=== PATIENT | female | born 1985 | race Caucasian/White ===

== ENCOUNTER 2021-01-18 07:32 | Inpatient (IN) ==
[2021-01-18] MEDS ORDERED: OXYTOCIN 30 UNITS/500 ML BAG IV PRN (10:41)
[2021-01-18] MEDS ORDERED: miSOPROStoL 50 MCG TAB PO ONE ×2 (10:41→14:56)
--- NOTE | 2021-01-18 10:41 | Progress Note ---
Date of Service January 18, 2021 Assessment & Plan Admission and Anticipated Discharge Date Admission Date: January 18, 2021 Subjective Met pt and Mother Reviewed PNC, PMH, PSH and allergies Plan labor induction FHR; CAT 1 Ctx; 2-5min Mild intensity VE; 3/50/-3 EFW; 7-8Lbs by kyung bedside sono; VT Results & Data ([facility]) Vital Signs (Past 12 Hours) Vital Signs Temp Resp 01/18/21 08:07 36.8 C 20
[2021-01-18 11:21] LABS: Hematocrit (blood only) 39.4 % (37-47); Hemoglobin 13.6 g/dL (12.0-16.0); Mean Corpuscular Hemoglobin 31.9 pg (25-34); Mean Corpuscular Hgb Conc 34.5 g/dL (32-36); Mean Corpuscular Volume 92.3 fL (80-100); Mean Platelet Volume 12.3 fL (7.4-10.4); Platelet Count 158 K/uL (130-400); RDW Coefficient of Variation 12.8 % (11.5-14.5); RDW Standard Deviation 43.3 fL (36.4-46.3); Red Blood Count 4.27 M/uL (4.2-5.4); White Blood Count 8.58 K/uL (4.8-10.8)
[2021-01-18] MEDS ORDERED: DINOPROSTONE 10 MG INSERT PV ONE (19:50)
--- NOTE | 2021-01-18 21:46 | Progress Note ---
Date of Service January 18, 2021 Assessment & Plan Admission and Anticipated Discharge Date Admission Date: January 18, 2021 Subjective Pt doing well doing well FHR; CAT1 VE; 3/50/-2 Cervidil placed Results & Data ([facility]) Vital Signs (Past 12 Hours) Vital Signs Temp Pulse Resp BP 01/18/21 19:00 36.6 C 59 L 18 111/65 01/18/21 15:22 36.5 C 57 L 18 130/67 01/18/21 15:05 65 96/61 L 01/18/21 14:03 70 20 99/60 L 01/18/21 12:45 36.7 C 68 20 109/73 01/18/21 11:01 71 16 103/62
[2021-01-19] MEDS ORDERED: fentaNYL citrate 100 MCG/2 ML VIAL ONE (05:04)
[2021-01-19] MEDS ORDERED: SODIUM CHLORIDE 0.9% INJ 10 ML VIAL ONE (05:04)
[2021-01-19] MEDS ORDERED: ePHEDrine sulfate 50 MG/ML AMP ONE (05:04)
[2021-01-19] MEDS ORDERED: BUPIVACAINE 0.25% 30 ML VIAL ONE (05:04)
[2021-01-19] MEDS ORDERED: fentaNYL 2MCG/ML ROPIVACAINE 1.25MG/ML 100 ML BAG EPI ONE (05:05)
[2021-01-19] MEDS: LACTATED RINGER'S 1,000 ML IV PRN ×2 (05:05→07:08)
[2021-01-19] MEDS ORDERED: NALOXONE HCL 1 MG in SODIUM CHLORIDE 0.9% 1000ML 1,000 ML IV PRN (05:23)
[2021-01-19] MEDS ORDERED: fentaNYL 2MCG/ML ROPIVACAINE 1.25MG/ML 100 ML BAG EPI PRN (05:23)
[2021-01-19] MEDS ORDERED: NALBUPHINE HCL INJ 10 MG/ML AMP IV PRN (05:23)
[2021-01-19] MEDS ORDERED: ePHEDrine sulfate 50 MG/ML AMP IV PRN (05:23)
[2021-01-19] MEDS ORDERED: ONDANSETRON INJ 2 MG/ML 2 ML VIAL IV PRN (05:23)
[2021-01-19] MEDS ORDERED: NALOXONE HCL 0.4 MG/1 ML VIAL/CARP IV PRN (05:23)
[2021-01-19] MEDS ORDERED: diphenhydrAMINE 50 MG/ML VIAL IV PRN (05:23)
--- NOTE | 2021-01-19 05:25 | Anesthesiology Consultation ---
Date of Service January 19, 2021 Assessment & Plan (1) Encounter for pre-operative examination: Chart Review Chart Review: Patient NOT seen in Pre Admission Testing and Acceptable Risk for Labor Epidural Consults Requested none History Height/Weight Height: 5 ft 2 in Weight: 72.575 kg Allergies Allergy/AdvReac Type Severity Reaction Status Date / Time No Known Allergies Allergy Unverified 01/18/21 07:47 Medications Home Medications Medication Instructions Recorded Confirmed Last Taken acetaminophen 325 mg capsule 325 mg PO QID PRN 01/18/21 01/18/21 Unknown (Tylenol) prenat.vits,iris,kaq-exhr-hzsmy 1 tab PO DAILY 01/18/21 01/18/21 01/18/21 05:30 Active Medications Generic Name Dose Route Start Last Admin Trade Name Freq PRN Reason Stop Dose Admin Lactated Ringer's 1,000 mls @ 125 mls/hr 01/18/21 10:41 01/19/21 05:05 Lr IV 01/20/21 10:40 125 mls/hr .Q8H PRN Administration L&D Protocol Protocol Past Medical History Medical History Varicose vein of leg R posterior calf Exercise / Class Metabolic Activity II 4-5 Yardwork/Stairs/Walk up hill Past Family History Family History Mother Uterine cancer Past Surgical History Surgical History H/O wisdom tooth extraction History of removal of skin mole abdomen Past Anesthesia History No Hx of Anesthesia Complications and No Family Hx of Anesthesia Complications History of PONV No Hx of PONV and No Hx of Motion Sickness Social History Smoking Status: Never smoker Do You Dip or Chew Tobacco: No Hx Alcohol Use: No Hx Substance Use: No substance use type: does not use Physical Exam Vital Signs Last Vital Signs Temp 36.6 C 01/19/21 02:30 Pulse 64 01/19/21 05:45 Resp 18 01/19/21 02:30 BP 127/64 01/19/21 05:44 Pulse Ox 94 01/19/21 05:45 Testing Laboratory Results 01/18/21 11:00
--- NOTE | 2021-01-19 07:54 | Obstetrical Progress Note ---
Date of Service January 19, 2021 Assessment & Plan Admission and Anticipated Discharge Date Admission Date: January 18, 2021 Subjective Patient is seen and examined Reviewed her records and discussed her PMH, PSH, meds, SH GDMA1 Sciatica pain GBS neg Coronavirus neg She is comfortable with epidural in place VSS Afebrile FHR categ I VE: 7/ 80%/ -1, bulging bag, AROM'ed clear fluid Continue to monitor Anticipate Results & Data ([facility]) Vital Signs (Past 12 Hours) Vital Signs Temp Pulse Resp BP Pulse Ox 01/19/21 07:48 62 93 01/19/21 07:47 68 116/63 01/19/21 07:43 59 L 91 01/19/21 07:38 59 L 93 01/19/21 07:34 61 108/59 L 01/19/21 07:33 61 94 01/19/21 07:28 62 94 01/19/21 07:23 66 93 01/19/21 07:18 58 L 107/63 92 01/19/21 07:13 64 92 01/19/21 07:08 61 93 01/19/21 07:04 65 103/67 01/19/21 07:03 66 95 01/19/21 06:58 58 L 97 01/19/21 06:57 36.4 C L 63 18 103/66 96 01/19/21 06:53 60 96 01/19/21 06:48 66 96 01/19/21 06:47 75 110/72 01/19/21 06:43 57 L 95 01/19/21 06:38 61 92 01/19/21 06:36 75 89 L 01/19/21 06:33 73 111/64 92 01/19/21 06:28 60 88 L 01/19/21 06:26 57 L 88 L 01/19/21 06:23 60 87 L 01/19/21 06:18 62 94 01/19/21 06:16 57 L 88 L 01/19/21 06:15 57 L 132/66 01/19/21 06:13 61 91 01/19/21 06:11 61 121/68 01/19/21 06:08 58 L 94 01/19/21 06:04 61 109/68 01/19/21 06:03 61 93 01/19/21 06:02 60 116/72 01/19/21 06:00 61 140/62 94 01/19/21 05:58 70 112/68 91 01/19/21 05:56 63 125/69 01/19/21 05:54 76 115/67 01/19/21 05:53 73 93 01/19/21 05:52 63 144/81 H 94 01/19/21 05:49 60 118/68 01/19/21 05:48 60 116/64 95 01/19/21 05:46 60 107/54 L 01/19/21 05:45 64 94 01/19/21 05:44 65 127/64 01/19/21 05:43 63 93 01/19/21 05:38 67 92 01/19/21 05:37 65 94 01/19/21 05:33 62 92 01/19/21 05:30 70 138/66 93 01/19/21 05:28 63 92 01/19/21 05:23 68 95 01/19/21 05:22 78 92 01/19/21 02:30 36.6 C 65 18 114/66 01/18/21 22:42 36.6 C 67 18 110/57 L
[2021-01-19] MEDS ORDERED: BENZOCAINE 20% AER SPR 82.5 GM CAN EXT PRN (10:05)
[2021-01-19] MEDS ORDERED: SUPERCREAM 0.870% 15 GM JAR EXT PRN (10:05)
[2021-01-19] MEDS ORDERED: MEASLES, MUMPS & RUBELLA VIRUS VIAL SQ ONE (10:05)
[2021-01-19] MEDS ORDERED: bisacodyL 10 MG SUPP PR PRN (10:05)
[2021-01-19] MEDS ORDERED: OXYTOCIN 30 UNITS/500 ML BAG IV PRN (10:05)
[2021-01-19] MEDS ORDERED: HYDROCORTISONE ACETATE 25 MG SUPP PR PRN (10:05)
[2021-01-19] MEDS ORDERED: DIPHTHERIA/TETANUS/PERTUSSIS 0.5 ML SYR/VIAL IM ONE (10:05)
[2021-01-19] MEDS ORDERED: IBUPROFEN 600 MG TAB PO PRN (10:05)
--- NOTE | 2021-01-19 11:03 | Anesthesiology Progress Note ---
Date of Service January 19, 2021 Anesthesia Post Procedure Vital Signs Vital Signs: Temp Pulse Resp BP Pulse Ox 01/19/21 10:47 74 112/59 L 01/19/21 10:32 68 107/53 L 01/19/21 10:18 69 114/53 L 01/19/21 10:08 90 87 L 01/19/21 10:06 83 86 L 01/19/21 10:03 71 95 01/19/21 10:02 72 105/60 01/19/21 09:58 74 94 01/19/21 09:53 76 94 01/19/21 09:48 68 112/66 94 01/19/21 09:43 75 93 01/19/21 09:38 80 85 L 01/19/21 09:36 76 85 L 01/19/21 09:33 69 117/68 93 01/19/21 09:31 64 87 L 01/19/21 09:28 69 93 01/19/21 09:25 68 88 L 01/19/21 09:23 65 93 01/19/21 09:18 68 98/56 L 94 01/19/21 09:13 66 94 01/19/21 09:08 68 94 01/19/21 09:04 71 104/62 01/19/21 09:03 69 94 01/19/21 09:02 74 87 L 01/19/21 09:00 36.7 C 18 01/19/21 08:58 61 93 01/19/21 08:53 64 94 01/19/21 08:49 70 117/71 88 L 01/19/21 08:48 66 93 01/19/21 08:43 71 94 01/19/21 08:38 66 94 01/19/21 08:33 65 106/62 95 01/19/21 08:28 63 94 01/19/21 08:23 69 93 01/19/21 08:19 67 105/64 01/19/21 08:18 69 92 01/19/21 08:13 65 92 01/19/21 08:10 72 87 L 01/19/21 08:08 62 91 01/19/21 08:03 64 91 01/19/21 08:02 68 106/64 01/19/21 08:00 18 01/19/21 07:58 70 92 01/19/21 07:55 68 89 L 01/19/21 07:53 69 92 01/19/21 07:48 62 93 01/19/21 07:47 68 116/63 01/19/21 07:43 59 L 91 01/19/21 07:38 59 L 93 01/19/21 07:34 61 108/59 L 01/19/21 07:33 61 94 01/19/21 07:30 18 01/19/21 07:28 62 94 01/19/21 07:23 66 93 01/19/21 07:18 58 L 107/63 92 01/19/21 07:13 64 92 01/19/21 07:08 61 93 01/19/21 07:04 65 103/67 01/19/21 07:03 66 95 01/19/21 07:00 18 01/19/21 06:58 58 L 97 01/19/21 06:57 36.4 C L 63 18 103/66 96 01/19/21 06:53 60 96 01/19/21 06:48 66 96 01/19/21 06:47 75 110/72 01/19/21 06:43 57 L 95 01/19/21 06:38 61 92 01/19/21 06:36 75 89 L 01/19/21 06:33 73 111/64 92 01/19/21 06:28 60 88 L 01/19/21 06:26 57 L 88 L 01/19/21 06:23 60 87 L 01/19/21 06:18 62 94 01/19/21 06:16 57 L 88 L 01/19/21 06:15 57 L 132/66 01/19/21 06:13 61 91 01/19/21 06:11 61 121/68 01/19/21 06:08 58 L 94 01/19/21 06:04 61 109/68 01/19/21 06:03 61 93 01/19/21 06:02 60 116/72 01/19/21 06:00 61 140/62 94 01/19/21 05:58 70 112/68 91 01/19/21 05:56 63 125/69 01/19/21 05:54 76 115/67 01/19/21 05:53 73 93 01/19/21 05:52 63 144/81 H 94 01/19/21 05:49 60 118/68 07/16/21 05:48 60 116/64 95 01/19/21 05:46 60 107/54 L 01/19/21 05:45 64 94 01/19/21 05:44 65 127/64 01/19/21 05:43 63 93 01/19/21 05:38 67 92 01/19/21 05:37 65 94 01/19/21 05:33 62 92 01/19/21 05:30 70 138/66 93 01/19/21 05:28 63 92 01/19/21 05:23 68 95 01/19/21 05:22 78 92 01/19/21 02:30 36.6 C 65 18 114/66 01/18/21 22:42 36.6 C 67 18 110/57 L 01/18/21 19:00 36.6 C 59 L 18 111/65 01/18/21 15:22 36.5 C 57 L 18 130/67 01/18/21 15:05 65 96/61 L 01/18/21 14:03 70 20 99/60 L 01/18/21 12:45 36.7 C 68 20 109/73 Pain Intensity Abdomen: Pain Intensity: 0 Transfer of Care Handoff Completed per policy Notes Mental Status: alert / awake / arousable and participated in evaluation Patient Amnestic to Procedure: Yes Nausea / Vomiting: adequately controlled Pain: adequately controlled Airway Patency, RR, SpO2: stable & adequate BP & HR: stable & adequate Hydration State: stable & adequate Anesthetic Complications: no major complications apparent and Pt Satisfied with anesthetic care
--- NOTE | 2021-01-19 13:54 | Delivery Summary ---
DATE OF DELIVERY: 01/19/2021. TIME: 9:37 a.m. DETAILS OF DELIVERY: The patient was found to be fully dilated and desired to push. She pushed only once and delivered the head without difficulty. Shoulders were delivered with minimal traction. Baby was handed to the mother where mouth and nose were suctioned. Baby was vigorously moving and crying. Cord was clamped x2 and cut at 1 minute delay. Vagina and perineum were checked for lacerations. There were only small superficial first-degree labial lacerations superiorly. Those were repaired with 3-0 Vicryl on a SH needle. Excellent hemostasis was achieved. Rest of the vagina and perineum were intact. Placenta was found to be in the vagina, delivered spontaneous as intact and complete. The placenta was found to have 2 lobes, both were intact and connected with the sac. Uterus was explored and found to be empty. Lower segment was cleared of all clots and debris. Fundus was firm. EBL was 200 mL. Mom and baby tolerated the procedure well. Sponge, lap, and needle counts were correct x2. The baby was a viable male infant, Apgars 8/9, weight is 4043 gr. No complications happened and I was present during whole procedure. Job ID: [id number] [facility]
[2021-01-19] MEDS: ACETAMINOPHEN 325 MG TAB PO PRN (21:44)
[2021-01-19] MEDS: DOCUSATE SODIUM 100 MG CAP PO SCH (21:45)
[2021-01-20 07:06] LABS: Hematocrit (blood only) 35.8 % (37-47); Hemoglobin 12.4 g/dL (12.0-16.0); Mean Corpuscular Hemoglobin 31.2 pg (25-34); Mean Corpuscular Hgb Conc 34.6 g/dL (32-36); Mean Corpuscular Volume 89.9 fL (80-100); Mean Platelet Volume 12.3 fL (7.4-10.4); Platelet Count 161 K/uL (130-400); RDW Coefficient of Variation 12.5 % (11.5-14.5); RDW Standard Deviation 40.8 fL (36.4-46.3); Red Blood Count 3.98 M/uL (4.2-5.4); White Blood Count 11.48 K/uL (4.8-10.8)
[2021-01-20] MEDS: DOCUSATE SODIUM 100 MG CAP PO SCH (07:35)
[2021-01-20] MEDS: ACETAMINOPHEN 325 MG TAB PO PRN (07:56)
[2021-01-20] MEDS ORDERED: FERROUS SULFATE 325 MG TAB PO SCH (08:00)
[2021-01-20] MEDS ORDERED: PRENATAL VITAMIN 1 TAB PO SCH (08:00)
--- NOTE | 2021-01-20 11:06 | Obstetrical Progress Note ---
Date of Service January 20, 2021 Subjective Ambulation: ambulating normally Passing Gas:: Yes Diet Tolerance:: regular diet Feeding Type:: breast feeding Current Pain Level(1-10): 0 doing well some c/o of sciatica plans for d/c today Physical Exam Constitutional WD/WN, vitals as above comfortable Gastrointestinal (Abdomen) abdomen soft and non-tender fundus firm no edema neg Harriet's for d/c today Results & Data ([facility]) Vital Signs (Past 12 Hours) Vital Signs Temp Pulse Pulse Resp BP BP Pulse Ox 01/20/21 09:29 36.6 C 78 18 105/55 L 98 01/20/21 07:25 36.6 C 65 18 113/78 98 01/20/21 04:41 36.4 C L 67 16 111/77 98 Laboratory Results 01/18/21 01/18/21 01/18/21 08:05 08:05 11:00 WBC 8.58 RBC 4.27 Hgb 13.6 Hct 39.4 MCV 92.3 MCH 31.9 MCHC 34.5 RDW Std Deviation 43.3 RDW Coeff of Onelia 12.8 Plt Count 158 MPV 12.3 H COVID-19 Eval [facility] SARS-CoV-2, RNA, NAAT NEGATIVE Blood Type Antibody Screen Screen 01/20/21 01/20/21 06:19 06:23 WBC 11.48 H RBC 3.98 L Hgb 12.4 Hct 35.8 L MCV 89.9 MCH 31.2 MCHC 34.6 RDW Std Deviation 40.8 RDW Coeff of Onelia 12.5 Plt Count 161 MPV 12.3 H COVID-19 Eval Order SARS-CoV-2, RNA, NAAT Blood Type O Negative Antibody Screen NEGATIVE Screen Positive A
[2021-01-20] MEDS ORDERED: bisacodyL 5 MG TABEC PO SCH (20:00)
--- NOTE | 2021-01-31 12:50 | Coding Query ---
CODING QUERY To promote full compliance with coding requirements relating to patient care, provider participation is requested in all cases of billing clerk uncertainty. Please assist us with the question(s) below: Coding Question(s): GDMA1 is not a hospital approved abbreviation. Please specify the meaning of GDMA1 so it can be coded appropriately. Thank you. Physician's Response(s): GDMA1 means Gestational Diabetes mellitus, controlled with diet (x ) Present on admission ( ) Not present on admission Thank you Janet Dean Principal Diagnosis: "that condition established after study, to be chiefly responsible for occasioning the admission of the patient to the hospital for care." Co-Existing Principal Diagnosis: "when two or more diagnoses equally meet the criteria for principal diagnosis as determined by the circumstances of admission, diagnostic work up, and/or therapy provided, and the Alphabetic Index, Tabular List, or another coding guideline does not provide sequencing direction, any one of the diagnoses may be sequenced first." "When the physician has documented what appears to be a current diagnosis in the body of the record, but has not included the diagnosis in the final diagnostic statement, the physician should be asked whether the diagnosis should be added." ([facility] 2 QTR90. p3-4) TIN
--- NOTE | 2021-01-31 12:51 | Coding Query ---
CODING QUERY To promote full compliance with coding requirements relating to patient care, provider participation is requested in all cases of transit bus operator uncertainty. Please assist us with the question(s) below: Coding Question(s): Please specify weeks of gestation on admi Physician's Response(s): 40.2 weeks Thank you Janet Dean Principal Diagnosis: "that condition established after study, to be chiefly responsible for occasioning the admission of the patient to the hospital for care." Co-Existing Principal Diagnosis: "when two or more diagnoses equally meet the criteria for principal diagnosis as determined by the circumstances of admission, diagnostic work up, and/or therapy provided, and the Alphabetic Index, Tabular List, or another coding guideline does not provide sequencing direction, any one of the diagnoses may be sequenced first." "When the physician has documented what appears to be a current diagnosis in the body of the record, but has not included the diagnosis in the final diagnostic statement, the physician should be asked whether the diagnosis should be added." ([facility] 2 QTR90. p3-4) TIN
--- NOTE | 2021-01-31 12:51 | Coding Query ---
CODING QUERY To promote full compliance with coding requirements relating to patient care, provider participation is requested in all cases of medical records coder uncertainty. Please assist us with the question(s) below: Coding Question(s): Please specify a supporting diagnosis as the reason for induction. Thank you. Physician's Response(s): post dates Thank you Janet Dean Principal Diagnosis: "that condition established after study, to be chiefly responsible for occasioning the admission of the patient to the hospital for care." Co-Existing Principal Diagnosis: "when two or more diagnoses equally meet the criteria for principal diagnosis as determined by the circumstances of admission, diagnostic work up, and/or therapy provided, and the Alphabetic Index, Tabular List, or another coding guideline does not provide sequencing direction, any one of the diagnoses may be sequenced first." "When the physician has documented what appears to be a current diagnosis in the body of the record, but has not included the diagnosis in the final diagnostic statement, the physician should be asked whether the diagnosis should be added." ([facility] 2 QTR90. p3-4) TIN
== END 2021-01-20 13:05 | disposition home or self-care (01) | DRG 807 ==
LOC: 4S1 07:32 → 4S2 01-19 14:07